=== PATIENT | male | born 1990 ===

== ENCOUNTER 2017-10-27 17:23 | Emergency (ER) | payer OTHER, MEDICAID ==
[2017-10-27 17:29] VITALS: BMI 27.1
[2017-10-27 17:39] VITALS: TEMP 98.8
--- NOTE | 2017-10-27 17:52 | ED PDOC ---
Arrival/HPI - General Chief Complaint: Medical Clearance Time Seen by Provider: 10/27/17 17:47 Historian: Patient - History of Present Illness Narrative History of Present Illness (Text): 10/27/17 17:50 27 y/o male, no significant pmh, psychiatric history including PTSD, nkda, biba s/p arguing with the about 2 hours ago after suspecting she's cheating on him. Pt. stated that he feels well, no homicidal or suicidal ideation, no auditory or visual hallucination, no chest pain or shortness of breath, no numbness or tingling, no rash, no other medical or psychological complaints. Past Medical History - Provider Review Nursing Documentation Reviewed: Yes - Infectious Disease Hx of Infectious Diseases: None - Tetanus Immunization Tetanus Immunization: Unknown - Past Medical History Past Medical History: No Previous - Neurological Other/Comment: Traumatic Brain Injury - Endocrine/Metabolic Other/Comment: Nephrotic Syndrome - Psychiatric Hx Bipolar Disorder: Yes Hx Post Traumatic Stress Disorder: Yes Hx Substance Use: Yes - Surgical History Hx Orthopedic Surgery: Yes (right knee) - Anesthesia Hx Anesthesia: Yes Hx Anesthesia Reactions: No Hx Malignant Hyperthermia: No - Suicidal Assessment Feels Threatened In Home Enviroment: No Family/Social History - Physician Review Nursing Documentation Reviewed: Yes Family/Social History: Unknown Family HX Smoking Status: Light Smoker < 10 Cigarettes Daily Hx Alcohol Use: No Hx Substance Use: Yes Substance used: Marijuana Hx Substance Use Treatment: No Allergies/Home Meds Allergies/Adverse Reactions: Allergies No Known Allergies Allergy (Verified 05/12/17 18:42) Home Medications: Home Meds Medication Instructions Recorded Confirmed Divalproex [Depakote ER] 1,000 mg PO DAILY 08/05/16 10/27/17 FLUoxetine [Prozac] 20 mg PO DAILY 05/12/17 10/27/17 Melatonin [Melatin] 6 mg PO HS 10/27/17 10/27/17 Prazosin HCL [Minipress] 1 tab PO HS 10/27/17 10/27/17 Risperidone [Risperdal] 1 tab PO DAILY 10/27/17 10/27/17 Review of Systems - Review of Systems Constitutional: absent: Fatigue, Fevers Eyes: absent: Vision Changes ENT: absent: Hearing Changes, Rhinorrhea Respiratory: absent: SOB, Cough Cardiovascular: absent: Chest Pain Gastrointestinal: absent: Abdominal Pain, Nausea, Vomiting Skin: absent: Rash, Pruritis Neurological: absent: Headache Psychiatric: absent: Anxiety, Depression, Suicidal Ideation Physical Exam Vital Signs Reviewed: Yes Vital Signs Temp Pulse Resp BP Pulse Ox 10/27/17 19:11 90 10/27/17 17:38 98.8 F 102 H 18 124/86 96 Temperature: Afebrile Blood Pressure: Normal Pulse: Tachycardic Respiratory Rate: Normal Appearance: Positive for: Well-Appearing, Non-Toxic, Comfortable Pain Distress: None Mental Status: Positive for: Alert and Oriented X 3 - Systems Exam Head: Present: Atraumatic, Normocephalic Pupils: Present: PERRL Extroacular Muscles: Present: EOMI Conjunctiva: Present: Normal Mouth: Present: Moist Mucous Membranes Neck: Present: Normal Range of Motion Respiratory/Chest: Present: Clear to Auscultation, Good Air Exchange. No: Respiratory Distress, Accessory Muscle Use Cardiovascular: Present: Regular Rate and Rhythm, Normal S1, S2. No: Murmurs Abdomen: No: Tenderness, Distention, Peritoneal Signs Back: Present: Normal Inspection Upper Extremity: Present: Normal Inspection. No: Cyanosis, Edema Lower Extremity: Present: Normal Inspection. No: Edema Neurological: Present: GCS=15, CN II-XII Intact, Speech Normal Skin: Present: Warm, Dry, Normal Color. No: Rashes Psychiatric: Present: Alert, Oriented x 3, Normal Insight, Normal Concentration. No: Agitated, Hallucinations, Intoxicated, Lethargic Medical Decision Making ED Course and Treatment: 10/27/17 17:52 -labs/ua/uds -[facility] notified and spoke to her as she's in the ER -pending for evaluation. 10/27/17 19:02 -Labs show no acute findings except wbc 13 with no fever or chills which this is likely stress induced. -alcohol level within normal limit. -UA show no UTI -UDS show drug abuse and he refused detox. -Pt. is medically clear and stable for the psychiatric evaluation 10/27/17 19:57 -Pt. evaluated by the [facility] staff and spoke to the psychiatrist supervisor type disk quality control Dr. Schwartz , stated that the patient can be psychiatrically clear and stable to be discharged home. - Lab Interpretations Lab Results: 10/27/17 18:17 10/27/17 18:17 Lab Results 10/27/17 18:17: Urine Color Straw, Urine Appearance Clear, Urine pH 6.5, Ur Specific [place] <= 1.005, Urine Protein 100 H, Urine Glucose (UA) Negative, Urine Ketones Negative, Urine Blood Trace-lysed H, Urine Nitrate Negative, Urine Bilirubin Negative, Urine Urobilinogen 0.2, Ur Leukocyte Esterase Negative , Urine RBC 0 - 2, Urine WBC 2 - 5, Ur Epithelial Cells 1 - 3, Urine Bacteria Few 10/27/17 18:17: WBC 13.3 H, RBC 4.92, Hgb 13.8 L, Hct 41.4 L, MCV 84.1, MCH 28.0 , MCHC 33.3, RDW 14.1, Plt Count 300, MPV 10.9, Gran % 80.5 H, Lymph % (Auto) 9.0 L, Dundy % (Auto) 9.1 H, Eos % (Auto) 1.3 L, Baso % (Auto) 0.1, Gran # 10.74 H, Lymph # (Auto) 1.2, Dundy # (Auto) 1.2 H, Eos # (Auto) 0.2, Baso # (Auto) 0.01 10/27/17 18:17: Alcohol, Quantitative < 10 10/27/17 18:17: Salicylates < 1 L, Acetaminophen < 10.0 L 10/27/17 18:17: Urine Opiates Screen Negative, Urine Methadone Screen Negative, Ur Barbiturates Screen Negative, Ur Phencyclidine Scrn Negative, Ur Amphetamines Screen Negative, U Benzodiazepines Scrn Negative, U Oth Cocaine Metabols Positive H, U Cannabinoids Screen Positive H 10/27/17 18:17: Sodium 149 H, Potassium 4.8, Chloride 107, Carbon Dioxide 30, Anion Gap 16, BUN 12, Creatinine 0.9, Est GFR ( Amer) > 60, Est GFR (Non- Af Amer) > 60, Random Glucose 100, Calcium 9.3, Total Bilirubin 0.2, AST 31, ALT 28, Alkaline Phosphatase 59, Total Protein 7.4, Albumin 4.2, Globulin 3.3, Albumin/Globulin Ratio 1.3 - PA / CLIENT SUPPORT CONSULTANT / Resident Statement / has reviewed & agrees with the documentation as recorded. Disposition/Present on Arrival - Present on Arrival Any Indicators Present on Arrival: No History of DVT/PE: No History of Uncontrolled Diabetes: No Urinary Catheter: No History of Decub. Ulcer: No History Surgical Site Infection Following: None - Disposition Have Diagnosis and Disposition been Completed?: Yes Diagnosis: Psychiatric care Disposition: HOME/ ROUTINE Disposition Time: 17:52 Patient Plan: Discharge Patient Problems: Current Active Problems Problem Status Onset Psychiatric care Acute Condition: GOOD Additional Instructions: Discharge home with education on follow up with your own pmd and psychiatrist within 2 days, return to the ER for any new or worsening signs or symptoms. Referrals: Duy Hudson MD [Primary Care Provider] - Follow up with primary [facility] [Outside] - Follow up with primary Forms: WORK NOTE
[2017-10-27 18:35] LABS: PH,URINE 6.5 (4.7-8.0); URINE APPEARANCE CLEAR (CLEAR); URINE BILIRUBIN NEGATIVE (NEGATIVE); URINE BLOOD TRACE-LYSED (NEGATIVE); URINE COLOR STRAW (YELLOW); URINE GLUCOSE (UA) NEGATIVE (NEGATIVE); URINE LEUKOCYTE ESTERASE NEGATIVE Leu/uL (NEGATIVE); URINE PROTEIN 100 mg/dL (<30 mg/dL); URINE UROBILINOGEN 0.2 E.U./dL (<1 E.U./dL)
[2017-10-27 18:44] LABS: URINE BACTERIA FEW (NEG); URINE RBC 0 - 2 /hpf (0-2)
[2017-10-27 18:45] LABS: BASO # 0.01 K/mm3 (0.0-2.0); BASO % 0.1 % (0.0-3.0); EOS # 0.2 (0.0-0.7); EOS % 1.3 % (1.5-5.0); GRAN # 10.74 (1.4-6.5); GRAN % 80.5 % (50.0-68.0); HEMOGLOBIN 13.8 g/dL (14.0-18.0); LYMPH # 1.2 (1.2-3.4); MEAN CELL VOLUME 84.1 fl (80.0-105.0); MEAN CORPUSCULAR HGB CONC 33.3 g/dl (31.0-37.0); MEAN PLATELET VOLUME 10.9 fl (7.0-11.0); MONO # 1.2 (0.1-0.6); MONO % 9.1 % (1.0-6.0); RBC 4.92 10^6/uL (3.5-6.1); RED CELL DISTRIBUTION WIDTH 14.1 % (11.5-14.5); WHITE BLOOD COUNT 13.3 10^3/ul (4.5-11.0)
[2017-10-27 18:56] LABS: ALB/GLOB RATIO 1.3 (1.1-1.8); ALBUMIN 4.2 g/dL (3.0-4.8); ALT/SGPT 28 U/L (7-56); AST/SGOT 31 U/L (17-59); BLOOD UREA NITROGEN 12 mg/dL (7-21); CALCIUM 9.3 mg/dL (8.4-10.5); GFR NON-AFRICAN AMERICAN > 60
[2017-10-27 19:00] LABS: ACETAMINOPHEN < 10.0 ug/ml (10.0-20.0); SALICYLATE < 1 mg/dL (2.0-20.0)
[2017-10-27 19:04] LABS: BARBITURATES, UR NEGATIVE (NEGATIVE); BENZODIAZEPINES, UR NEGATIVE (NEGATIVE); OPIATES, UR NEGATIVE (NEGATIVE); PHENCYCLIDINE, UR NEGATIVE (NEGATIVE)
[2017-10-27 19:11] VITALS: PULSE 90
[2017-10-27 20:45] VITALS: BP 120/82; RESP 16; O2SAT 99
== END 2017-10-27 20:44 | disposition home or self-care (01) ==
LOC: ED 17:23
DX: Z00.8 Encounter for other general examination (principal); F43.10 Post-traumatic stress disorder, unspecified; F19.10 Other psychoactive substance abuse, uncomplicated